=== PATIENT | female | born 1995 | race Caucasian/White ===

== ENCOUNTER 2017-04-23 21:02 | Outpatient (CLI) | payer OTHER ==
[~2017-04-23] VITALS: Ht 160 cm; Wt 72.7 kg
[~2017-04-23 21:02] MED LIST: CELEXA10 MG PO; IBU600 MG PO; MIRENA52 MG IU; NITRO-BID22 TP; PERCOCET 325 MG1 TA2 PO; PRENATAL1 TA1
[2017-04-23] MEDS ORDERED: PRENATAL MVI (21:25)
[2017-04-23 22:04] VITALS: BP 111/68; PULSE 90; TEMP 97.6
[2017-04-23 22:10] LABS: COLLECTION METHOD CLEAN CATCH
[2017-04-23 22:21] LABS: MUCOUS Present /lpf; PH 6 (5-8); SQUAMOUS EPITHELIAL 0-2 /hpf; URINE APPEARANCE Clear; URINE BACTERIA None Seen /hpf; URINE BILIRUBIN Negative (NEGATIVE); URINE BLOOD 1+ (NEGATIVE); URINE COLOR Yellow; URINE GLUCOSE Negative (NEGATIVE); URINE KETONE Negative (NEGATIVE); URINE LEUKOCYTE ESTERASE Negative (NEGATIVE); URINE PROTEIN(semi-quant) Negative (NEGATIVE); URINE RBC 0-2 /hpf; URINE UROBILINOGEN Negative (NEGATIVE); URINE WBC 0-2 /hpf
== END 2017-04-23 22:15 | disposition home or self-care (01) ==
LOC: LDRO 21:02
PROVIDERS: Obstetrics & Gynecology
DX: O62.2 Other uterine inertia (principal); Z3A.37 37 weeks gestation of pregnancy

== ENCOUNTER 2017-05-07 07:16 | Inpatient (IN) | payer OTHER ==
[~2017-05-07] VITALS: Ht 157.6 cm; Wt 74.5 kg
[2017-05-07] VITALS (18 sets, daily range): BP systolic 85–121; BP diastolic 53–73; PULSE 65–84; TEMP 97.7–98
[~2017-05-07 07:16] MED LIST changes: +PRENATAL MVI
[2017-05-07 11:39] LABS: BASO # 0.1 (0.0-0.2); BASO % 0.4 % (0.0-2.0); EOS # 0.4 (0.0-0.7); EOS % 3.3 % (0-4.0); GRAN # 9.2 (1.4-6.5); GRAN % 76.2 % (42.2-75.2); HEMATOCRIT 39.7 % (37.0-47.0); HEMOGLOBIN 13.4 g/dl (12.5-16.0); LYMPH # 1.6 (1.2-3.4); LYMPH % 13.2 % (20.0-51.0); MEAN CELL VOLUME 89 fl (80.0-100.0); MEAN CORPUSCULAR HEMOGLOBIN 30 pg (27.0-31.0); MEAN CORPUSCULAR HGB CONC 34 g/dl (33.0-37.0); MEAN PLATELET VOLUME 11.2 fl (7.4-10.4); MONO # 0.7 (0.1-0.6); MONO % 5.9 % (1.7-9.3); PLATELET COUNT 192 K/mm3 (130-400); RED BLOOD COUNT 4.45 M/mm3 (4.10-5.30); WHITE BLOOD COUNT 12.1 K/mm3 (4.8-10.8)
[2017-05-08 04:30] VITALS: BP 102/51; PULSE 81; TEMP 97.7
[2017-05-08 07:28] VITALS: BP 107/61; PULSE 80; TEMP 97.5
[2017-05-08 16:35] VITALS: BP 90/59; PULSE 84; TEMP 97.8
[2017-05-08 20:15] VITALS: BP 117/67; PULSE 63; TEMP 98.1
[2017-05-09 07:44] VITALS: BP 100/59; PULSE 88; TEMP 97.3
[2017-05-09 15:00] VITALS: BP 114/66; PULSE 80; TEMP 97.5
[2017-05-09 20:30] VITALS: BP 102/83; PULSE 87; TEMP 97.6
[2017-05-10 07:42] VITALS: BP 111/60; PULSE 72; TEMP 98.1
[2017-05-10] MEDS ORDERED: IBU600 MG PO (09:09)
[2017-05-10] MEDS ORDERED: PERCOCET 325 MG1 TA2 PO (09:09)
[2017-05-10] MEDS ORDERED: ROXICODONE 55 MG/TAB PO (09:20)
== END 2017-05-10 10:52 | disposition home or self-care (01) | DRG 766 ==
LOC: OB 07:16
PROVIDERS: Obstetrics & Gynecology
PROC: 10D00Z1 Extraction of Products of Conception, Low, Open Approach (ICD-10-PCS; principal; 2017-05-07)
DX: O34.211 Maternal care for low transverse scar from previous cesarean delivery (principal); N85.8 Other specified noninflammatory disorders of uterus; O99.824 Streptococcus B carrier state complicating childbirth; Z3A.39 39 weeks gestation of pregnancy; Z37.0 Single live birth
CPT/HCPCS: J0690; J1885; J2270; J2405; J2590; J7120